=== PATIENT | male | born 1935 | race Native Hawaiian/Other Pacific Islander ===

== ENCOUNTER 2017-07-14 07:50 | Day surgery (SDC) | payer MEDICARE, OTHER ==
[2017-07-14 08:39] VITALS: BMI 18.5
[2017-07-14] MEDS ORDERED: Propofol 10 mg/ml Inj (20 ML) ONE ×2 (08:59→09:00)
[2017-07-14] MEDS ORDERED: Lidocaine Hydrochloride 5 ML INJ ONE (09:00)
[2017-07-14 09:57] VITALS: TEMP 96.9
[2017-07-14 10:03] VITALS: RESP 20
[2017-07-14 11:05] VITALS: BP 136/78; PULSE 78; O2SAT 99
== END 2017-07-14 11:00 | disposition home or self-care (01) ==
LOC: C.ENDO 07:50
PROVIDERS: ATTEND Internal Medicine Gastroenterology
DX: Z12.11 Encounter for screening for malignant neoplasm of colon (principal); R10.13 Epigastric pain; I10 Essential (primary) hypertension; N40.0 Benign prostatic hyperplasia without lower urinary tract symptoms; Z90.3 Acquired absence of stomach [part of]; E78.5 Hyperlipidemia, unspecified; Z87.891 Personal history of nicotine dependence; Z79.899 Other long term (current) drug therapy; K63.3 Ulcer of intestine; K57.30 Diverticulosis of large intestine without perforation or abscess without bleeding; K64.1 Second degree hemorrhoids; K21.0 Gastro-esophageal reflux disease with esophagitis
CPT/HCPCS: 43239; 45380; 88305; J2704